=== PATIENT | female | born 1970 | race Caucasian/White ===

== ENCOUNTER → 2018-08-24 | Outpatient (CLI) | payer BC ==
--- NOTE | 2018-08-25 20:05 | Diagnostic Imaging Report ---
INDICATION: Routine screening. Comparison is made with prior mammograms from 03/06/2016 and 11/08/2014. 2-D and 3-D bilateral screening mammography was performed with computer-aided Detection (CAD) system. FINDINGS: Scattered fibroglandular densities are identified bilaterally. The right breast is unremarkable. There is a nodule slightly inferior retroareolar left breast which appears new since prior exam. It has fairly circumscribed margins. Additional views are recommended. No suspicious calcifications are seen. The axillae are unremarkable. IMPRESSION: Left breast nodule. Additional views are recommended for further evaluation. ACR BI-RADS Category 0: Incomplete. (Needs additional imaging evaluation). Result letter will be mailed to the patient. Note: At least 10% of breast cancer is not imaged by mammography. Dictated on workstation # [id number]
== END ==
LOC: RAD 08:53
PROVIDERS: ATTEND Obstetrics & Gynecology
DX: Z12.31 Encounter for screening mammogram for malignant neoplasm of breast (principal)
CPT/HCPCS: 77067

== ENCOUNTER → 2018-09-02 | Outpatient (CLI) | payer BC ==
--- NOTE | 2018-09-02 20:55 | Diagnostic Imaging Report ---
INDICATION: Left breast density. Patient presents for additional views. Comparison is made with recent screening study from 08/24/2018. Unilateral left 2-D and 3-D diagnostic mammography was performed including spot compression CC and ML views as well as conventional 90 degree lateral view. The current study was also evaluated with a Computer Aided Detection (CAD) system. FINDINGS: Additional views confirm the presence of a tiny circumscribed nodule in the lower and slightly outer left breast approximately 5-6 o'clock location 2-3 cm from the nipple. This has circumscribed margins and appears to be fairly benign. No suspicious calcifications are seen. IMPRESSION: Circumscribed nodule lower slightly outer left breast 2-3 cm from the nipple. Further evaluation with ultrasound is recommended and will be performed today. ACR BI-RADS Category 0: Incomplete. (Needs additional imaging evaluation). Result letter will be mailed to the patient. Note: At least 10% of breast cancer is not imaged by mammography. Dictated by: Dictated on workstation # [id number]
--- NOTE | 2018-09-02 21:06 | Diagnostic Imaging Report ---
INDICATION: Left breast density. Correlation is made with diagnostic study earlier same day as well as bilateral screening mammogram from 08/24/2018. FINDINGS: Sonographic interrogation of the inferior and outer left breast was performed. There is a circumscribed hypoechoic nodule at the 4 o'clock location approximately 2 cm from the nipple. This measures 5 mm x 5 mm x 8 mm. There does appear to be some minimal internal blood flow. There is also possible posterior acoustic enhancement. This can be seen with fibroadenoma. No other masses are seen. IMPRESSION: Circumscribed hypoechoic nodule 4 o'clock location of the left breast, 2 cm from the nipple. This has fairly benign features and may represent a fibroadenoma. Even so, followup left mammogram and left breast ultrasound in 6 months is recommended to confirm stability. ACR BI-RADS Category 3: Probably benign findings. Dictated by: Dictated on workstation # [id number]
== END ==
LOC: RAD 08:47
PROVIDERS: ATTEND Obstetrics & Gynecology
DX: N63.23 Unspecified lump in the left breast, lower outer quadrant (principal)
CPT/HCPCS: 76642